=== PATIENT | female | born 1985 | race Caucasian/White ===

== ENCOUNTER 2017-03-30 12:46 | Emergency (ER) | payer OTHER ==
--- NOTE | 2017-03-30 12:54 | ED Physician Documentation ---
Sore Throat/Dental Pain - HISTORIAN Historian: patient - HPI Stated Complaint: sore throat headache and ear pain x 4 days Chief Complaint: Sore Throat Onset: days ago (4) Associated Symptoms: sore throat, moderate, congestion, R ear pain, L ear pain, swollen glands. denies: fever, chills, cough Worsened By: nothing Further Comments: yes (She reports starting to feel bad about 4 days ago. States some days are wose than others . Reports sore throat, headache, ear pain , fever and nausea. Sick contacts +) - ROS CONST: no problems CVS/RESP: denies: shortness of breath, palpitations GI/: nausea. denies: problems urinating, vomiting MS/SKIN/LYMPH: denies: rash NEURO/PSYCH: none - PAST HX Past History: other (anxiety ) Immunizations: UTD Allergies/Adverse Reactions: Allergies Allergy/AdvReac Type Severity Reaction Status Date / Time morphine Allergy Severe Shortness Verified 03/30/17 13:05 of Breath haloperidol lactate Allergy Intermediate Verified 03/30/17 13:05 [From Haldol] prochlorperazine edisylate Allergy Intermediate other Verified 03/30/17 13:05 [From Compazine] prochlorperazine maleate Allergy Intermediate other Verified 03/30/17 13:05 [From Compazine] acetaminophen Allergy Unknown Verified 03/30/17 13:05 [From Tylenol-Codeine #3] codeine phosphate Allergy Unknown Verified 03/30/17 13:05 [From Tylenol-Codeine #3] haloperidol [From Haldol] Allergy Unknown Verified 03/30/17 13:05 ketorolac tromethamine Allergy Unknown Verified 03/30/17 13:05 [From Toradol] tramadol HCl [From Ultram] Allergy Unknown Verified 03/30/17 13:05 - SOCIAL HX Smoking History: cigarettes Alcohol Use: none Drug Use: none - FAMILY HX Family History: No - VITAL SIGNS Vital Signs: Vital Signs Temp Pulse Resp BP Pulse Ox 98.2 F 70 18 150/79 98 03/30/17 13:01 03/30/17 13:01 03/30/17 13:01 03/30/17 13:01 03/30/17 13:01 - REVIEWED ASSESSMENTS Nursing Assessment Reviewed: Yes Vitals Reviewed: Yes ED Results Lab/Radiology - Orders Orders: ED Orders Category Date Time Status GRP A STREP SCREEN Stat Lab 03/30/17 Ordered Sore throat Physical Exam - EXAM General Appearance: no acute distress Head/Neck: pain over sinuses, cervical lymphadenopathy Eyes: PERRL Mouth/Throat: pharyngeal erythema Ear/Nose: TM erythema (bilaterally ) Respiratory: no resp. distress, breath sounds nml CVS: reg. rate & rhythm, heart sounds nml Abdomen: soft, normal bowel sounds Extremities: nml ROM Skin: warm/dry, normal color Neuro/Psych: oriented x3, mood/affect nml Discharge Clincal Impression: Strep throat Sinusitis Qualifiers: Sinusitis location: frontal Chronicity: acute Recurrence: non-recurrent Qualified Code(s): J01.10 - Acute frontal sinusitis, unspecified Referrals: Claudia Wilde MD [Primary Care Provider] - 2 Days Comments: Augmentin 875/125mg take 1 by mouth twice daily Medrol Dose pack as directed Ciprodex 3 drops in each ear three times per day rest Fluids Return for increase in symptoms Condition: Stable Disposition: 01 HOME, SELF-CARE Decision to Admit: NO Date of Decison to Admit: 03/30/17 Decision Time: 13:08
[2017-03-30 13:05] VITALS: BP 150/79
== END 2017-03-30 13:13 | disposition home or self-care (01) ==
LOC: ED 12:46
DX: J01.10 Acute frontal sinusitis, unspecified (principal); F17.210 Nicotine dependence, cigarettes, uncomplicated
CPT/HCPCS: 87880; 99282

== ENCOUNTER 2017-04-17 20:50 | Emergency (ER) | payer SELFPAY ==
--- NOTE | 2017-04-17 21:12 | ED Physician Documentation ---
Upper Extremity Injury - HISTORIAN Historian: patient - HPI Chief Complaint: Upper Extremity Injury Onset: just prior to arrival Where: home Severity: mild Context: other (Was washing a mug which broke and sustained a laceration over 2 MC-P joint) Associated Symptoms: tingling Modifying Factors: none - ROS CONST: no problems - PAST HX Past History: none, Rt handed Immunizations: tetanus (Dec 2015) Allergies/Adverse Reactions: Allergies Allergy/AdvReac Type Severity Reaction Status Date / Time morphine Allergy Severe Shortness Verified 04/17/17 21:06 of Breath haloperidol lactate Allergy Intermediate Verified 03/30/17 13:05 [From Haldol] prochlorperazine edisylate Allergy Intermediate other Verified 04/17/17 21:06 [From Compazine] prochlorperazine maleate Allergy Intermediate other Verified 04/17/17 21:06 [From Compazine] acetaminophen Allergy Unknown Verified 04/17/17 21:06 [From Tylenol-Codeine #3] codeine phosphate Allergy Unknown Verified 04/17/17 21:06 [From Tylenol-Codeine #3] haloperidol [From Haldol] Allergy Unknown Verified 04/17/17 21:06 ketorolac tromethamine Allergy Unknown Verified 04/17/17 21:06 [From Toradol] tramadol HCl [From Ultram] Allergy Unknown Verified 04/17/17 21:06 - SOCIAL HX Smoking History: greater than 1 pack/day Alcohol Use: none Drug Use: none - FAMILY HX Family History: no significant history - VITAL SIGNS Vital Signs: Vital Signs Temp Pulse Resp BP Pulse Ox 150/79 03/30/17 13:13 - REVIEWED ASSESSMENTS Nursing Assessment Reviewed: Yes Vitals Reviewed: Yes Procedures Wound Location: upper extremity (right hand) Wound's Depth, Shape: superficial, linear Wound Explored: clean Betadine Prep?: No (Hexadine) Anesthesia: 1% Lidocaine Volume of Anesthetic: 0.8 ml Wound Debrided: none Wound Repaired With: sutures Suture Size/Type: 5:0 (simple with one mattress) Sterile Dressing Applied?: Yes Splint Applied?: No Sling Applied?: No Upper Extremity Injury Physic - Physical Exam General Appearance: no acute distress, alert Hand: non-tender, normal ROM, laceration (over 2nd MC-P joint). No: bone tenderness, deformity, ecchymosis Wrist: normal inspection Elbow/Forearm: normal inspection Neuro/Vascular/Tendon: no vascular compromise, motor nml, sensation nml Skin: warm,dry Resp/CVS: chest non-tender, breath sounds nml, heart sounds nml, no resp. distress, lungs clear, reg. rate & rhythm Discharge Clincal Impression: Laceration of right hand Qualifiers: Encounter type: initial encounter Foreign body presence: without foreign body Qualified Code(s): S61.411A - Laceration without foreign body of right hand, initial encounter Referrals: Early,MD Claudia [Primary Care Provider] - 2 Days Additional Instructions: Keep wound clean and dry, watch for any signs of infection; redness, swelling purulent drainage for the wound, red streaking up your hand/arm. Have sutures removed in 7 days. Condition: Stable Disposition: 01 HOME, SELF-CARE Decision to Admit: NO Date of Decison to Admit: 04/17/17 Decision Time: 21:32
[2017-04-17] MEDS: Lidocaine 1% 5ml(IM or SUTURE)(PAIN CLINIC) IJ ONE (21:15)
[2017-04-17] MEDS: TRIPLE ANTIBIOTIC OINTMENT PAC 1 PACKET TOP ONE (21:51)
[2017-04-17 21:52] VITALS: BP 132/86
== END 2017-04-17 21:45 | disposition home or self-care (01) ==
LOC: ED 20:50
DX: S61.210A Laceration without foreign body of right index finger without damage to nail, initial encounter (principal); Y93.G1 Activity, food preparation and clean up
CPT/HCPCS: 12001; 99283

== ENCOUNTER 2019-02-05 08:47 | Emergency (ER) | payer OTHER ==
[2019-02-05] MEDS ORDERED: fentaNYL CITRATE/PF 100 MCG/2 ML INJ. IV ONE (08:54)
[2019-02-05] MEDS ORDERED: KETOROLAC TROMETHAMINE 30 MG/1ML VIAL IV ONE (08:55)
--- NOTE | 2019-02-05 09:09 | ED Physician Documentation ---
Lower Extremity Injury - HISTORIAN Historian: patient - HPI Chief Complaint: Lower Extremity Injury Additional Information: 33 year old female presents with obvious deformity of left lower leg. She went to step over her daughter "going down the stairs" and had her boots on and her left leg twisted and snapped. She is refusing any pain medication due to history and is on Subutex. She finally agreed to IV Tylenol; would not accept sedative either. She has sensation, good pulses, and color of left lower extremity. Onset: minutes Where: home Severity: severe Context: fall, twist, wearing shoes Associated Symptoms:: snapping sensation, unable to bear weight Modifying Factors:: pain on movement - ROS CONST: no problems CVS/RESP: none GI/: denies: nausea, vomiting MS/SKIN/LYMPH: ankle swelling NEURO: denies: headache, head injury - PAST HX Past History: other (Hx of addiction; on suboxone) Immunizations: UTD Allergies/Adverse Reactions: Allergies Allergy/AdvReac Type Severity Reaction Status Date / Time morphine Allergy Severe Shortness Verified 02/05/19 09:27 of Breath haloperidol lactate Allergy Intermediate Verified 02/05/19 09:27 [From Haldol] prochlorperazine edisylate Allergy Intermediate other Verified 02/05/19 09:27 [From Compazine] prochlorperazine maleate Allergy Intermediate other Verified 02/05/19 09:27 [From Compazine] codeine phosphate Allergy Unknown Verified 02/05/19 09:27 [From Tylenol-Codeine #3] haloperidol [From Haldol] Allergy Unknown Verified 02/05/19 09:27 ketorolac tromethamine Allergy Unknown Verified 02/05/19 09:27 [From Toradol] tramadol HCl [From Ultram] Allergy Unknown Verified 02/05/19 09:27 Home Medications: Ambulatory Orders Medication Instructions Recorded Clonazepam 0.5 mg PO TID PRN 10/25/18 Buprenorphine HCl [Subutex] 1 tab PO TID 02/05/19 - SOCIAL HX Smoking History: less than 1 pack/day Alcohol Use: none Drug Use: none - FAMILY HX Family History: none - VITAL SIGNS Vital Signs: Vital Signs Temp Pulse Resp BP Pulse Ox 98.6 F 75 20 113/70 99 02/05/19 08:47 02/05/19 09:43 02/05/19 09:43 02/05/19 09:43 02/05/19 09:43 - REVIEWED ASSESSMENTS Nursing Assessment Reviewed: Yes Vitals Reviewed: Yes Procedures - Splinting Left Lower Extremity Hand-Made Type: OCL Splint: and Posteror Pre-Proc Neuro Vasc Exam: normal Post-Proc Neuro Vasc Exam: normal Progress: Patient tolerated well Progress - Progress Progress: 09:20 Call to the [facility] for ortho transfer 09:40 Patient is now requesting pain meds; will order fentanyl 10:[address] Almeida with Ortho ED Results Lab/Radiology - Radiology Radiology Impressions: Left ankle, AP and lateral History: Injury, pain, fall Findings: Comminuted fracture of the distal tibia and fibular shafts or present. There is moderate displacement and mild apex anterior angulation. There is no abnormal bone destruction. There is no dislocation. Impression: Distal tibial and fibular fractures. Electronically signed on Feb 05, 2019 9:16:59 AM EVENT PROMOTER by: Slim Hackett - Orders Orders: ED Orders Category Date Time Status Place IV Lock 1T Care 02/05/19 08:53 Active ANKLE 3 VIEWS OR MORE [RAD] Stat Exams 02/05/19 Completed Acetaminophen [Ofirmev] Med 02/05/19 09:04 Discontinued 1,000 mg IV NOW ONE Ketorolac Tromethamine [Toradol] Med 02/05/19 08:52 Discontinued 30 mg .ROUTE .STK-MED ONE Ketorolac Tromethamine [Toradol] Med 02/05/19 08:55 Discontinued 30 mg IV NOW ONE fentaNYL CITRATE/PF [Sublimaze] Med 02/05/19 08:54 Discontinued 50 mcg IV NOW ONE fentaNYL CITRATE/PF [Sublimaze] Med 02/05/19 09:34 Discontinued 50 mcg IV NOW ONE fentaNYL CITRATE/PF [Sublimaze] Med 02/05/19 10:06 Once 50 mcg IV NOW ONE Lower Extremities Injury Phy - Physical Exam General Appearance: moderate distress Hips: bilateral hip: non-tender, normal inspection, normal range of motion, no evidence of injury Knees: bilateral: non-tender, normal inspection, normal range of motion, no evidence of injury Ankle: left: bone tenderness (above the ankle), deformity (above the ankle), limited range of motion, pain (above the ankle), swelling Gait: gait not tested d/t pain Neuro/Vascular/Tendon: sensation nml Head/ENT: nml inspection Neck/Back: nml inspection Resp/CVS: breath sounds nml, heart sounds nml Abdomen: non-tender, pelvis stable Discharge Clincal Impression: Fracture of tibia with fibula, left, closed Referrals: Early,MD Claudia [Primary Care Provider] - 2 Days Additional Instructions: Will transfer to [facility] Condition: Good Disposition: 02 XFER SHT-TRM HOSP Decision to Admit: NO Decision Time: 10:15
--- NOTE | 2019-02-05 09:20 | Diagnostic Imaging Report ---
PATIENT MR#: [id number] PATIENT PATIENT NAME: GUDELIA JUSTICE DATE OF : 1985 REFERRING PHYSICIAN: Yolanda Fox EXAM DATE: 02/05/2019 ACCESSION NUMBER: [id number] EXAM DESCRIPTION: ANKLE 3 VIEWS OR MORE Left ankle, AP and lateral History: Injury, pain, fall Findings: Comminuted fracture of the distal tibia and fibular shafts or present. There is moderate di splacement and mild apex anterior angulation. There is no abnormal bone destruction. There is no dislocation. Impression: Distal tibial and fibular fractures. Read by: Dr. Slim Hackett Transcribed by: Transcribed Date: Electronically signed by: Dr. Slim Hackett Date signed: 02/05/2019 9:19:37 AM
[2019-02-05] MEDS: ACETAMINOPHEN 1,000 MG/100 ML INJ IV ONE (09:31)
[2019-02-05] MEDS: KETOROLAC TROMETHAMINE 30 MG/1ML VIAL ONE (09:31)
[2019-02-05] MEDS: fentaNYL CITRATE/PF 100 MCG/2 ML INJ. IV ONE ×2 (09:41→10:10)
[2019-02-05] MEDS: HYDROmorphone HCL/PF 2 MG/ML VIAL IVP ONE (10:41)
[2019-02-05] MEDS: HYDROmorphone HCL/PF 2 MG/ML VIAL ONE (10:41)
[2019-02-05 11:17] VITALS: BP 134/78
== END 2019-02-05 10:42 | disposition short-term general hospital (02) ==
LOC: ED 08:47
DX: S82.202A Unspecified fracture of shaft of left tibia, initial encounter for closed fracture (principal); S82.402A Unspecified fracture of shaft of left fibula, initial encounter for closed fracture; W10.9XXA Fall (on) (from) unspecified stairs and steps, initial encounter; Y92.009 Unspecified place in unspecified non-institutional (private) residence as the place of occurrence of the external cause
CPT/HCPCS: 29505; 73610; 96374; 96375; 96376; 99283; 99284; J1170; J3010; S1016